=== PATIENT | female | born 1990 | race African-American/Black ===

== ENCOUNTER 2019-08-01 10:18 | Observation (INO) | payer MEDICAID ==
[~2019-08-01] VITALS: Ht 165.1 cm; Wt 65.8 kg
== END 2019-08-01 15:40 | disposition home or self-care (01) ==
LOC: 8 EST LDRP 10:18
PROVIDERS: ADMIT Obstetrics & Gynecology; ATTEND Obstetrics & Gynecology
DX: O26.853 Spotting complicating pregnancy, third trimester (principal); O26.893 Other specified pregnancy related conditions, third trimester; R10.9 Unspecified abdominal pain; Z3A.39 39 weeks gestation of pregnancy
CPT/HCPCS: 76805; 76818; G0378; 99281

== ENCOUNTER 2019-08-04 05:11 | Inpatient (IN) | payer MEDICAID ==
[~2019-08-04] VITALS: Ht 165.1 cm; Wt 67.1 kg
[2019-08-04] MEDS ORDERED: PNV1TABL76 PO (06:06)
[2019-08-04] MEDS ORDERED: NALOXONE HCL 0.4 MG/ML 1ML VIAL IM PRN (06:15)
[2019-08-04] MEDS ORDERED: METHYLERGONOVINE MALEATE 0.2 MG/ML IM PRN (06:15)
[2019-08-04] MEDS ORDERED: LIDOCAINE HCL 1% 20ML VIAL (Pyxis) INJ INFIL SCH (06:15)
[2019-08-04] MEDS ORDERED: CARBOPROST TROMETHAMINE 250 MCG/ML AMPUL IM PRN (06:15)
[2019-08-04] MEDS: LACTATED RINGERS 1,000 ML IV SCH ×3 (07:06→16:13)
[2019-08-04] MEDS ORDERED: PENICILLIN G POTASSIUM 5 MMU in DEXT 5% WATER 100 ML IV NR (07:30)
[2019-08-04 07:51] LABS: PARTIAL THROMBOPLASTIN TIME 28.5 sec (23.4-31.0); PROTHROMBIN TIME 10.5 sec (9.6-11.0)
[2019-08-04 08:06] LABS: CLARITY URINE CLOUDY (CLEAR); COLOR URINE YELLOW (YELLOW); KETONES URINE NEGATIVE (NEGATIVE); LEUKOCYTE ESTERASE URINE TRACE (NEGATIVE); NITRITE URINE NEGATIVE (NEGATIVE); OCCULT BLOOD URINE NEGATIVE (NEGATIVE); PH URINE 7.5 (4.5-8.0); PROTEIN URINE NEGATIVE (NEGATIVE); SPECIFIC GRAVITY URINE 1.014 (1.005-1.030)
[2019-08-04 08:06] LABS: BASOPHILS % 0.7 % (0.0-2.0); EOSINOPHILS % 1.2 % (0.0-5.0); HEMATOCRIT. 33.7 % (36.0-48.0); HEMOGLOBIN. 11.3 g/dL (12.0-16.0); LYMPHOCYTES % 22.4 % (20.0-50.0); MEAN CORPUSCULAR HEMOGLOBIN 30.6 pg (28.0-32.0); MEAN PLATELET VOLUME 9.6 fl (7.4-10.4); NEUTROPHILS % 66.7 % (40.0-76.0); PLATELET 203 x1000/uL (130-400); RED BLOOD CELL COUNT 3.71 mill/uL (4.2-5.4); RED CELL DISTRIBUTION WIDTH 13.8 % (11.6-14.6)
[2019-08-04 08:26] LABS: *COCAINE SCREEN URINE NEGATIVE (NEGATIVE)
[2019-08-04 08:27] LABS: *AMPHETAMINES SCREEN URINE NEGATIVE (NEGATIVE); CANNABINOID URINE SCREEN NEGATIVE (NEGATIVE); METHADONE URINE SCREEN NEGATIVE (NEGATIVE); OPIATES URINE SCREEN NEGATIVE (NEGATIVE); PHENCYCLIDINE URINE SCREEN NEGATIVE (NEGATIVE)
[2019-08-04 08:28] LABS: *BARBITURATES SCREEN URINE NEGATIVE (NEGATIVE); *BENZODIAZEPINES SCREEN URINE NEGATIVE (NEGATIVE)
[2019-08-04 11:20] LABS: HEPATITIS B SURFACE ANTIGEN NEGATIVE
[2019-08-04] MEDS ORDERED: MISOPROSTOL 100MCG TABLET VG PRN (11:30)
[2019-08-04] MEDS ORDERED: MINERAL OIL 30ML BOTTLE PO NR (11:30)
[2019-08-04] MEDS: BUTORPHANOL TARTRATE 2 MG/ML VIAL IV PRN ×2 (15:00→20:56)
[2019-08-04] MEDS: PENICILLIN G POTASSIUM 2.5 MMU in DEXTROSE 5% WATER 50 ML IV SCH ×2 (16:34→20:55)
[2019-08-04] MEDS: DEXT 5%/LR + PITOCIN 20UNITS/L 1,000 ML IV SCH (18:21)
[2019-08-04] MEDS ORDERED: DEXT 5%/LR + PITOCIN 20UNITS/L 1,000 ML IV ONE (20:51)
[2019-08-05] MEDS: PENICILLIN G POTASSIUM 2.5 MMU in DEXTROSE 5% WATER 50 ML IV SCH (01:00)
[2019-08-05] MEDS ORDERED: MINERAL OIL 30ML BOTTLE PO NR (01:45)
[2019-08-05] MEDS: BUTORPHANOL TARTRATE 2 MG/ML VIAL IV PRN (02:43)
[2019-08-05] MEDS ORDERED: ONDANSETRON HCL 4MG/2ML INJ IV PRN (02:45)
[2019-08-05] MEDS ORDERED: GUAIFENESIN/CODEINE 200-20MG/10ML UDC PO PRN (02:45)
[2019-08-05] MEDS: DEXT 5%/LR + PITOCIN 20UNITS/L 1,000 ML IV SCH (05:25)
[2019-08-05] MEDS ORDERED: DEXT 5%/LR + PITOCIN 20UNITS/L 1,000 ML IV SCH (05:47)
[2019-08-05] MEDS ORDERED: IBUPROFEN 400MG TABLET PO PRN (06:00)
[2019-08-05] MEDS ORDERED: RHO(D) IMMUNE GLOBULIN 300 MCG/SYR IM PRN (06:00)
[2019-08-05] MEDS ORDERED: METHYLERGONOVINE MALEATE 0.2 MG/ML IM PRN (06:00)
[2019-08-05] MEDS ORDERED: LANOLIN OINT 7GM TUBE TOP PRN (06:00)
[2019-08-05 08:00] VITALS: BP 98/59
[2019-08-05] MEDS: PRENATAL VIT/FE FUMARATE/FA TABLET PO SCH (08:32)
[2019-08-05] MEDS: IBUPROFEN 800MG TABLET PO PRN ×3 (08:33→21:44)
[2019-08-05 16:21] VITALS: BP 104/62
[2019-08-05 19:30] VITALS: BP 109/54
[2019-08-05] MEDS: DOCUSATE SODIUM 100MG CAPSULE PO SCH (21:14)
[2019-08-06 05:38] VITALS: BP 98/59
[2019-08-06] MEDS: IBUPROFEN 800MG TABLET PO PRN ×2 (06:38→15:13)
[2019-08-06 07:06] LABS: BASOPHILS % 0.7 % (0.0-2.0); EOSINOPHILS % 0.7 % (0.0-5.0); HEMATOCRIT. 31.8 % (36.0-48.0); HEMOGLOBIN. 10.6 g/dL (12.0-16.0); LYMPHOCYTES % 18.5 % (20.0-50.0); MEAN CORPUSCULAR HEMOGLOBIN 30.4 pg (28.0-32.0); MEAN CORPUSCULAR VOLUME 90.9 fL (81.0-99.0); MEAN PLATELET VOLUME 9.3 fl (7.4-10.4); NEUTROPHILS % 73.1 % (40.0-76.0); PLATELET 197 x1000/uL (130-400); RED BLOOD CELL COUNT 3.49 mill/uL (4.2-5.4); RED CELL DISTRIBUTION WIDTH 13.6 % (11.6-14.6)
[2019-08-06 07:30] VITALS: BP 103/47
[2019-08-06] MEDS: PRENATAL VIT/FE FUMARATE/FA TABLET PO SCH (10:53)
[2019-08-06 15:32] VITALS: BP 115/64
[2019-08-06 19:30] VITALS: BP 116/59
[2019-08-06] MEDS: DOCUSATE SODIUM 100MG CAPSULE PO SCH (21:00)
[2019-08-07 05:00] VITALS: BP 102/60
[2019-08-07] MEDS: IBUPROFEN 800MG TABLET PO PRN (05:44)
[2019-08-07] MEDS ORDERED: FERR325T6 MT (07:18)
[2019-08-07] MEDS ORDERED: IBUP-2030 MT (07:18)
[2019-08-07 07:30] VITALS: BP 121/75
[2019-08-07] MEDS: PRENATAL VIT/FE FUMARATE/FA TABLET PO SCH (08:53)
== END 2019-08-07 10:30 | disposition home or self-care (01) | DRG 560 ==
LOC: OBSVTOIN 05:11 → 8 EST LDRP 05:11 → 8EST 08-05 06:30
PROVIDERS: ADMIT Obstetrics & Gynecology; ATTEND Obstetrics & Gynecology
PROC: 10E0XZZ Delivery of Products of Conception, External Approach (ICD-10-PCS; principal; 2019-08-05)
DX: O69.81X0 Labor and delivery complicated by cord around neck, without compression, not applicable or unspecified (principal); D64.9 Anemia, unspecified; Z37.0 Single live birth; O32.3XX0 Maternal care for face, brow and chin presentation, not applicable or unspecified; Z3A.40 40 weeks gestation of pregnancy; O90.81 Anemia of the puerperium
CPT/HCPCS: 36415; 76815; 80305; 81003; 86592; 86703; 86762; 86850; 86900; 87340; 99281; J0595; J2405; J2540; J2590; J3490; J7060; J7120